=== PATIENT | male | born 1990 | race Caucasian/White ===

== ENCOUNTER 2016-10-05 12:33 | Emergency (ER) | payer SELFPAY ==
[2016-10-05 12:40] VITALS: BP 154/86; PULSE 76; TEMP 97.7; BMI 30.3
[2016-10-05] MEDS ORDERED: OXYCODONE HCL 5 MG TABLET PO ONE (12:57)
[2016-10-05] MEDS ORDERED: PREDNISONE 20 MG TAB PO ONE (12:57)
--- NOTE | 2016-10-05 13:02 | EDPRACDOC ---
- General Information Chief Complaint: Shoulder Pain Stated Complaint: RT SHOULDER PAIN NO INJURY SOME NUMBNESS Time Seen by Provider: 10/05/16 12:43 Information Source: Patient Mode of Arrival: Car Home Medications: Home Medications Oxycodone Immediate Release [Oxycodone Immediate Release (OxyIR)] 5 mg PO Q6H PRN #14 tab 10/05/16 Prednisone [Deltasone, Orasone] 20 mg PO BID #12 tab 10/05/16 Allergies/Adverse Reactions: Allergies Allergy/AdvReac Type Severity Reaction Status Date / Time No Known Allergies Allergy Verified 10/05/16 13:12 - History of Present Illness Onset: LAST NIGHT HPI: PT PRESENTS WITH RIGHT POSTERIOR SHOULDER PAIN THAT RADIATES DOWN TO HIS ELBOW. 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 STATES IF HE KEEPS HIS ARM IN THE BENT POSITION CLOSE TO HIS BODY IT DOES NOT HURT MUCH. NO OBVIOUS INJURY OR DEFORMITY NOTED. Description: Reports: With Use, At Rest, Intermittently, At Night Location: Reports: Right, Posterior Circumstances: Reports: Work related Relevant History: Reports: None Tetanus Up To Date?: No Dominant Hand: Right Pain Severity: Moderate Able to Move Shoulder?: No Associated Signs & Symptoms: Reports: Numbness, Arm pain, Elbow pain ED Past Medical History - History Reviewed Yes Nurses notes reviewed and agree except as marked EDM Review of Systems - Review of Systems ROS Negative Except as Marked: Yes All systems reviewed and were negative except as marked - Physical Exam Constitutional: Alert Oriented to: Time, Person, Place Last recorded Vital Signs: Last Vital Signs Temp 97.7 F 10/05/16 12:39 Pulse 76 10/05/16 12:39 Resp 18 10/05/16 12:39 BP 154/86 10/05/16 12:39 Pulse Ox 97 10/05/16 12:39 Oxygen Pulse Oxygen Saturation 97 O2 Device Oxygen Flow Rate Fraction of Inspired Oxygen ( FIO2) - HEENT Head: Normal ( normocephalic) Eye Exam: Normal (PERRL, EOMI, Sclera white) Oropharynx: Normal (Pharynx:Moist without exudate,Gums-no swelling) Nose: No Symptoms Reported (septum midline) Neck: Normal (FROM, trachea at midline) - Respiratory/Cardiovascular Respiratory: Normal - CTA (BBS clear to auscultation without adventitious sounds ) Cardiovascular: Normal (RRR without murmur, gallop or rub) - GI Auscultation: Normal (NABS) Palpation: Normal (Soft,No rebound or guarding, non distended) Tenderness: Non tender Bain's Sign: Negative Rectal Exam: Deferred - Musculoskeletal Back: Normal (Non-Tender) Extremities: Radial Pulse (2+) - Integumentary Skin: Normal, Warm, Dry Lymphatics: Normal (no adenopathy) - Neurologic Memory Impaired: Normal Motor Function: Normal (Normal tone, Pulses 2+ No cyanosis or edema, FROM) Cranial Nerve: Normal (CN II-X11 intact sensation, strength 5/5) Cerebellar: Normal Mood Description: Normal Perception: Normal ED Shoulder Problem Exam - Musculoskeletal Clavicle: Normal Shoulder: Limited ROM, Tender Drop arm test: Negative (PT WILL NOT MOVE ARM DUE TO PAIN) Impingement test: Negative (PT WILL NOT MOVE ARM DUE TO PAIN) Arm: Normal Distal Function/Circulation: Normal - Differential Diagnosis Other Decision Time to Discharge: 13:41 - Departure Disposition: Home Condition: Stable Final Diagnosis: Sprain of right shoulder Qualifiers: Encounter type: initial encounter Shoulder sprain type: unspecified sprain Qualified Code(s): S43.401A - Unspecified sprain of right shoulder joint, initial encounter Instructions: RICE: Routine Care for Injuries, Shoulder Sprain (ED) Education/Counseling Given To: Patient Education/Counseling Given Regarding: Diagnosis, Treatment, Prognosis, Follow Up Referrals: Hakeem Odom MD [Staff Physician] - [address],Seth Partida MD [Staff Physician] - [facility] Prescriptions: Oxycodone Immediate Release [Oxycodone Immediate Release (OxyIR)] 5 mg PO Q6H PRN #14 tab PRN Reason: Pain Prednisone [Deltasone, Orasone] 20 mg PO BID #12 tab Forms: Excuse Note Additional Instructions: ICE THE AREA OFTEN. WEAR SLING UNTIL PAIN IS GONE. TAKE ARM OUT OF THE SLING SEVERAL TIME A DAY AND MOVE THE ARM AND SHOULDER. IF PAIN CONTINUES PLEASE FOLLOW UP WITH ORTHOPEDIC. RETURN TO THE ED FOR WORSENING SYMPTOMS OR CONCERNS
--- NOTE | 2016-10-05 13:33 | DIRPT ---
CLINICAL DATA: Right shoulder pain and numbness for 2 days. No known injury. Initial encounter. EXAM: RIGHT SHOULDER - 2+ VIEW COMPARISON: None. FINDINGS: There is no evidence of fracture or dislocation. There is no evidence of arthropathy or other focal bone abnormality. Soft tissues are unremarkable. IMPRESSION: Normal exam. Electronically Signed By: Corby Grover M.D. On: 10/05/2016 13:31
== END 2016-10-05 13:55 | disposition home or self-care (01) ==
LOC: EDMC 12:33
DX: S43.401A Unspecified sprain of right shoulder joint, initial encounter (principal); X58.XXXA Exposure to other specified factors, initial encounter; Y93.9 Activity, unspecified
CPT/HCPCS: 73030; 99283; J3490